=== PATIENT | male | born 1960 | race Caucasian/White ===

== ENCOUNTER → 2021-10-23 08:28 | Outpatient (CLI) | payer OTHER, SELFPAY ==
[2021-10-23 21:55] LABS: SARS-CoV-2 RNA PCR Negative
== END ==
PROVIDERS: PCP Family Medicine; Visit Provider Family Medicine
DX: J02.9 Acute pharyngitis, unspecified (principal); Z20.822 Contact with and (suspected) exposure to COVID-19
CPT/HCPCS: C9803; U0003; U0005